=== PATIENT | male | born 1980 | race Caucasian/White ===

== ENCOUNTER 2022-10-02 13:53 | Outpatient (CLI) | payer OTHER ==
--- NOTE | 2022-10-02 12:03 | Sleep Patient Instructions ---
Sleep Center Visit Summary - Patient Visit Information Reason for Visit: Initial consult for evaluation of sleep disordered breathing and other sleep issues. - Patient Instructions Instructions Attached: Sleep Study, Sleep Clinic Visit Additional Instructions: You will be completing a sleep study, either an in-lab polysomnography (PSG) or home sleep study (HST). You will follow-up in the sleep care office after the sleep study is completed to hear the results and talk about therapy, if needed. You will be called by office staff to schedule this appointment but you may contact us with any questions. - Clinic Information Contact: [facility] [address] [place] [address] [email or web address] T: [phone]
--- NOTE | 2022-10-02 14:32 | SLEEP CARE CONSULTATION ---
Information from patient questionnaire entered by Loida Campbell. I have reviewed and concur with the information entered by Loida Campbell. This document represents the service I personally performed and the decisions made by me, Sepideh Lim ARNP. History of Present Illness Service Date and Time: 10/02/2022 1353 Reason for Visit: New patient Chief Complaint: reports: Unrefreshed sleep, Excessive daytime sleepiness, Fatigue Date of Onset: 2012 Usual bedtime: 9-10 PM Time it takes to fall asleep: 15 MIN Snores at night: No Observed to quit breathing while asleep: No Sleeps alone due to snoring: No Number of times waking at night: 0-1 Reasons for waking at night: reports: Other (turning over in bed). denies: Choking, Snoring, Gasping for air Toss, Turn, or Twitch while sleeping: Yes Recalls having dreams: No Usually gets out of bed at: 6AM; weekends 1000 Feels refreshed in the morning: No Morning headache: Yes (mostly on weekend; 1-3 times a week) Sleepy or fatigued during the day: Yes Ever fallen asleep while driving: Yes (drowsy driving, no accidents) Takes day naps: Yes (4-5 days a week for about 10 minutes) Dreams during day naps: Yes Prior sleep studies: Yes Year and Where: [facility] 2012? Additional HPI information: I had the pleasure of seeing NBA AHN today regarding the possibility of him having a sleep disorder. His current complaints are excessive daytime sleepiness, fatigue and unrefreshed sleep. He states he was diagnosed with idiopathic hypersomnia in [facility] around 2012. He was treated with Adderall for a few years. He weaned himself off his medications and has not been on any medications since 2017. He has been increasing caffeine intake to compensate for symptoms returning over the last 2 years. His concentration is "terrible". He has increased memory loss. He is overall fatigued and has excessive daytime sleepiness. He feels that the fatigue is affecting his life right now. He states he has not been told that he snores or has any pauses in breathing when sleeping. He denies choking or gasping for air waking him up at night. - Parasomnia Symptoms Ever been unable to move upon waking from sleep: No Walks in sleep: No Talks in sleep: No Ever acted out dreams in sleep: No Ever felt weak in the knees when startled or emotional: No Bothered by creepy, crawly, restless sensations in legs: No Problems with memory or concentration: Yes (both) Subjective Initial [place] Sleepiness Scale score: 19 (10/02/22) Past Medical History Past Medical History: reports: Other (THROMBOCYTOSIS, IDIOPATHNIC Hypersomnia) Social History The patient's occupation is a AM. Patient is and lives in . Have you smoked in the past 12 months: No Alcohol use: No Caffeine use: Yes Caffeine amount and frequency: 300MG DAILY Family History Family history of sleep disordered breathing: Yes Family Hx Sleep Apnea: Father: Snoring Allergies and Home Medications Known drug allergies: No Drug allergies reviewed: Yes Home medication list reviewed: Yes (no thomson medications) Review of Systems Weight gain over past 5 years: 30 Cardiovascular: denies: high blood pressure Gastrointestinal: denies: heartburn Neurological: denies: headaches Psychiatric: reports: Attention Deficit Hyperactivity, anxiety, depression Ear/Nose/Throat: reports: wisdom teeth removed (two pulled) Endocrine: reports: sluggishness Physical Exam Vital signs obtained and entered by: LOIDA Kulkarni MA Blood Pressure: 106/74 (LEFT ARM) Cuff size: regular Heart Rate: 72 O2 Saturation: 98 Height: 5 ft 8 in Weight: 196 lb 3.2 oz Body Mass Index: 29.8 BMI Classification: Overweight Neck circumference: 16.25 Mouth and throat: narrow oropharynx Soft palate: long Hard palate: normal Uvula: normal Uvula visualization: 25% Mallampati Class III Tongue: enlarged in size with teeth soler on lateral edges Tonsils: small Neck: normal w/o lymphadenopathy or thyromegaly Heart: regular rate and rhythm Lungs: clear bilaterally Impression and Plan 1. Suspected Obstructive Sleep Apnea-Hypopnea Syndrome, as suggested by a history of morning headache, unrefreshed sleep, cognitive impairment, and excessive daytime sleepiness. Narrow oropharynx and obesity are common predisposing factors for obstructive sleep apnea-hypopnea syndrome. I recommend proceeding to polysomnography to confirm the diagnosis and to assess severity. If the patient has significant sleep disordered breathing, a manual CPAP titration study will also be performed to find the optimal treatment pressure. I informed the patient of what the sleep studies involve and after some discussion, obtained agreement to proceed. The pathophysiology of obstructive sleep apnea-hypopnea syndrome was discussed with the patient and health risks of cardiovascular and cerebrovascular disease if not treated. Risks of drowsy driving discussed in detail and patient advised to avoid long distance driving and to stick puller at the first sign of drowsiness. Patient agreed to plan. * Schedule polysomnography +- manual CPAP titration study and return in 1-2 weeks after the study to discuss result and initiate therapy. * Avoid long distance driving or driving when feeling sleepy. * Avoid alcohol, sedative and muscle relaxant around bedtime. * Attempt to lose weight. * Review instructions provided by trained office staff on how to prepare for the sleep study. * Return for follow-up after sleep study completed. Counseling Topics: Weight loss health impact Visit Type: In Office Time Spent with Patient (minutes): 30 Provider Statement: I spent 100% of the Face to Face Visit with the patient with greater than 50% spent counseling the patient and coordination of care.
[2022-10-02 14:33] VITALS: BP 106/74
== END 2022-10-02 13:54 | disposition home or self-care (01) ==
LOC: SC 13:53
PROVIDERS: ATTEND Nurse Practitioner Family
DX: G47.10 Hypersomnia, unspecified (principal); R53.83 Other fatigue; G47.8 Other sleep disorders; E66.3 Overweight; Z68.29 Body mass index [BMI] 29.0-29.9, adult
CPT/HCPCS: 99203; 99212

== ENCOUNTER 2022-10-22 19:33 | Outpatient (CLI) | payer OTHER | END 2022-10-22 19:34 | disposition home or self-care (01) | LOC: SC 19:33 | PROVIDERS: ATTEND Nurse Practitioner Family | DX: G47.61 Periodic limb movement disorder (principal) | CPT/HCPCS: 95810 ==

== ENCOUNTER 2022-11-14 12:59 | Outpatient (CLI) | payer OTHER ==
[2022-11-14 13:35] VITALS: BP 130/87
--- NOTE | 2022-11-14 13:35 | SLEEP CARE CONSULTATION ---
Information from patient questionnaire entered by Jigna Braden. I have reviewed and concur with the information entered by Jigna Braden. This document represents the service I personally performed and the decisions made by , Sepideh Lim ARNP. History of Present Illness Service Date and Time: 11/14/2022 1259 Initial [place] Sleepiness Scale score: 19 (10/02/22) Current [place] Sleepiness Scale score: 19 Additional HPI information: NBA AHN returns for follow up and results of the recently performed polysomnography. The patient was informed of the following findings: No significant sleep disordered breathing with an average AHI of 0.6 and [place] oxygen saturation of 90%. He had light snoring and severe periodic leg movements of sleep that contributed to sleep fragmentation. I explained the pathophysiology behind obstructive sleep apnea. Patient does not have sleep apnea and was advised how weight gain could increase the risk of developing sleep apnea in the future. I strongly encouraged the patient to lose weight. Patient has light snoring. Snoring can be reduced by weight loss. Weight loss is best achieved with diet consult. Patient instructed to contact PCP for referral. Snoring can also be treated with an oral appliance from a dentist. Advised to check insurance coverage. In addition, an ENT evaluation can be do to see if other treatment is indicated. Patient was cautioned about risks of drowsy dr iving until sleepiness symptoms resolve. Sleep Study - Results Type of Sleep Study: Polysomnography Prior sleep studies: Yes Year and Where: [facility] 2012? Polysomnography/Home Sleep Study results: IMPRESSION: The quality of the study is good. The patient had normal sleep efficiency. The sleep architecture was abnormal for sleep fragmentation and reduced amount of time spent in slow wave sleep (N3). Respiratory monitoring showed no significant sleep disordered breathing (AHI = 0.6) or hypoxia ([place] oxygen saturation of 90%). The few respiratory events occurred only during supine sleep (supine AHI = 3.5; non-supine = 0.00). Snore was infrequent and light in intensity. There was severe periodic leg movement of sleep contributing to the sleep fragmentation. Cardiac rhythm was normal sinus rhythm without significant arrhythmia. No abnormal behavior (parasomnia) observed during the night. Allergies and Home Medications Known drug allergies: No Drug allergies reviewed: Yes Home medication list reviewed: Yes (no changes) Allergy and home medication list: Allergies No Known Drug Allergies Allergy Review of Systems Review of systems same as previous: Yes (no changes) Physical Exam Vital signs obtained and entered by: Sepideh Frank NP Blood Pressure: 130/87 Cuff size: wrist (right) Heart Rate: 67 O2 Saturation: 98 Height: 5 ft 8 in Weight: 198 lb 6.4 oz Body Mass Index: 30.2 BMI Classification: Obese Impression and Plan 1. Periodic limb movement, severe, that did contribute to the fragmentation of the patients sleep. Periodic limb movement of sleep (PLMS) is characterized by episodes of repetitive limb movements that occur during sleep and usually involve the lower limbs. The etiology is unknown. Caffeine can aggravate PLMS and should be avoided. Sleep hygiene methods can also improve sleep as well as lifestyle changes such as regular exercise. Patient was advised that further evaluation is indicated and they should follow up with their primary provider. 2. Snoring but no significant sleep disordered breathing. Patient advised that often weight loss will reduce snoring as well as apnea risk. An oral appliance can also be used for snoring. This would require a dental consultation. Patient cautioned not to use other online appliances as can cause bite issues. A list of accredited dentists in [facility] and one local dentist who makes oral appliances is available in the office as needed. Patient is advised to check if insurance will cover. An ENT consult can also be helpful to determine if any other treatment is an option. * Follow up with primary for further evaluation of severe PLMs * Attempt to lose weight * Avoid alcohol consumption near bedtime * The patient is cautioned about driving until sleepiness is completely resolved. * Return as needed for follow up. Counseling Topics: Weight loss health impact Visit Type: In Office Time Spent with Patient (minutes): 20 Provider Statement: I spent 100% of the Face to Face Visit with the patient with greater than 50% spent counseling the patient and coordination of care.
== END 2022-11-14 13:00 | disposition home or self-care (01) ==
LOC: SC 12:59
PROVIDERS: ATTEND Nurse Practitioner Family
DX: G47.61 Periodic limb movement disorder (principal); R06.83 Snoring; E66.9 Obesity, unspecified; Z68.30 Body mass index [BMI] 30.0-30.9, adult
CPT/HCPCS: 99212; 99213

== ENCOUNTER 2023-06-12 06:58 | Outpatient (CLI) | payer OTHER ==
--- NOTE | 2023-06-12 15:22 | MRI Report ---
PROCEDURE: Cervical Spine WO INDICATIONS: CERVICALGIA TECHNIQUE: Noncontrast sagittal T1 spin echo and T2 fast spin echo, sagittal STIR, foraminal oblique sagittal T2 fast spin echo, and axial gradient echo or T2 fast spin echo through the cervical spine. COMPARISON: None. FINDINGS: Image quality: Excellent. Alignment and Curvature: There is normal bony alignment. Bone Marrow: Marrow demonstrates normal overall signal. Spinal Cord: Visualized spinal cord has normal size and signal. No cerebellar tonsillar herniation. Paraspinous Soft Tissues: No paravertebral masses. Prevertebral soft tissues are normal in thicknes s. C2-C3: Disc height is preserved. No canal stenosis. Mild left neuroforaminal narrowing. No right jared ral foraminal stenosis. C3-C4: Disc height is preserved. Mild disc bulge. No canal stenosis. Mild left foraminal stenosis. No right neural foraminal narrowing. C4-C5: Mild disc desiccation and height loss. Broad based disc bulge. No canal stenosis. Mild bilate ral foraminal narrowing. C5-C6: Mild disc desiccation and height loss. There is a right paracentral disc protrusion which agustin sures approximately 1.2 x 0.7 cm and results in mild effacement of the anterior right aspect of the c ord. No cord signal abnormality. There is moderate left and moderate to severe right foraminal stenos is. C6-C7: Moderate disc desiccation and height loss. Broad based disc bulge. No canal stenosis. No fora suhail stenosis. C7-T1: Normal in appearance. IMPRESSION: 1. C5-6 right paracentral disc protrusion with effacement of the anterior right aspect of the cord. N o cord signal abnormality. 2. Moderate left and moderate to severe right foraminal stenosis at C5-6. 3. No other canal stenosis or foraminal narrowing of the cervical spine. Reviewed by: Chyna Kilgore MD on 06/12/2023 3:21 PM PST Approved by: Chyna Kilgore MD on 06/12/2023 3:21 PM PST Station ID: [id number]
== END 2023-06-12 06:59 | disposition home or self-care (01) ==
LOC: DI 06:58
PROVIDERS: ATTEND Family Medicine
DX: M50.222 Other cervical disc displacement at C5-C6 level (principal); M48.02 Spinal stenosis, cervical region